=== PATIENT | female | born 1990 | race American Indian/Alaskan Native ===

== ENCOUNTER 2018-10-30 21:48 | Emergency (ER) | payer MEDICAID ==
[2018-10-30 21:58] VITALS: TEMP 98.3; O2SAT 99
--- NOTE | 2018-10-30 22:45 | C.PDOC ---
History Of Present Illness 28-year-old female presents to the ED for evaluation of coughing congestion which began yesterday. Patient states that she is having trouble breathing through her nose. She did not receive her flu vaccination this season. Otherwise, patient denies fever, chills, chest pain, shortness of breath, abdominal pain, nausea, vomiting, headache, dizziness, recent travel, or any sick contacts at this time. Time Seen by Provider: 10/30/18 21:55 Chief Complaint (Nursing): Cough, Cold, Congestion History Per: Patient History/Exam Limitations: no limitations Onset/Duration Of Symptoms: Hrs Current Symptoms Are (Timing): Still Present Associated Symptoms: Cough, Nasal Congestion. denies: Fever, Chills, Nausea, Vomiting Additional History Per: Patient Past Medical History Reviewed: Historical Data, Nursing Documentation, Vital Signs Vital Signs: Last Vital Signs Temp 98.3 F 10/30/18 21:52 Pulse 88 10/30/18 21:52 Resp 14 10/30/18 21:52 BP 115/77 10/30/18 21:52 Pulse Ox 99 10/30/18 21:52 - Medical History PMH: No Chronic Diseases Surgical History: No Surg Hx Family History: States: Unknown Family Hx - Social History Hx Alcohol Use: No Hx Substance Use: No - Immunization History Hx Influenza Vaccination: No Review Of Systems Constitutional: Negative for: Fever, Chills ENT: Positive for: Nose Congestion Cardiovascular: Negative for: Chest Pain Respiratory: Positive for: Cough. Negative for: Shortness of Breath Gastrointestinal: Negative for: Nausea, Vomiting, Abdominal Pain Neurological: Negative for: Headache, Dizziness Physical Exam - Physical Exam Appears: Non-toxic, No Acute Distress Skin: Normal Color, Warm, Dry Head: Atraumatic, Normacephalic Eye(s): bilateral: Normal Inspection Ear(s): Bilateral: Normal Nose: Other (nasal congestion ) Oral Mucosa: Moist Throat: Normal, No Erythema, No Exudate Neck: Normal ROM, Supple Chest: Symmetrical, No Deformity, No Tenderness Cardiovascular: Rhythm Regular, No Murmur Respiratory: Normal Breath Sounds, No Rales, No Rhonchi, No Wheezing Extremity: Normal ROM, Capillary Refill (less than 2 seconds ) Neurological/Psych: Oriented x3, Normal Speech, Normal Cognition ED Course And Treatment O2 Sat by Pulse Oximetry: 99 (on RA ) Pulse Ox Interpretation: Normal Medical Decision Making Medical Decision Making: Progress: CXR ordered. Flu swab ordered, resulted negative. Rapid strep test ordered, resulted negative. On reassessment, patient is resting comfortably, showing no signs of distress and is stable for discharge. Patient is advised to follow up with her PMD within 1-2 days for further evaluation. Disposition - Disposition Referrals: [facility] at [facility] [Outside] Disposition: HOME/ ROUTINE Disposition Time: 22:40 Condition: GOOD Additional Instructions: Increase fluids Rest, no strenuous activity Z-Ricardo as directed Flonase 2 sprays in each nostril daily Tessalon perles every 8 hours as needed for cough Melatonin 30minutes before bed as needed for sleep Followup with primary doctor or clinic within 2 days Return to ER for any new/worsening symptoms Prescriptions: Azithromycin [Z-Ricardo] 250 mg PO DAILY #6 tab Benzonatate [Tessalon Perle] 100 mg PO Q8H PRN #15 capsule PRN Reason: Cough Fluticasone Propionate [Flonase] 2 spr NS DAILY #1 bottle Melatonin 5 mg PO HS PRN #30 tablet PRN Reason: Insomnia Instructions: Upper Respiratory Infection (ED) Forms: General Discharge Instructions, [facility] ([place]), Work Excuse - Clinical Impression Clinical Impression: Lower respiratory infection - PA / EPIC PRELUDE ANALYST / Resident Statement MD/DO has reviewed & agrees with the documentation as recorded. - Scribe Statement The provider has reviewed the documentation as recorded by the Scribe (Alyson Santiago) All medical record entries made by the Scribe were at my direction and personally dictated by me. I have reviewed the chart and agree that the record accurately reflects my personal performance of the history, physical exam, medical decision making, and the department course for this patient. I have also personally directed, reviewed, and agree with the discharge instructions and disposition.
[2018-10-30 22:58] VITALS: BP 104/66; PULSE 76; RESP 16
--- NOTE | 2018-10-31 10:31 | RAD ---
Date of service: 10/30/2018 HISTORY: cough COMPARISON: No prior. TECHNIQUE: Chest PA and lateral FINDINGS: LUNGS: No active pulmonary disease. PLEURA: No significant pleural effusion identified. No pneumothorax apparent. CARDIOVASCULAR: No aortic atherosclerotic calcification present. Normal cardiac size. No pulmonary vascular congestion. OSSEOUS STRUCTURES: No significant abnormalities. VISUALIZED UPPER ABDOMEN: Normal. OTHER FINDINGS: None. IMPRESSION: No acute cardiopulmonary disease appreciated.
== END 2018-10-30 22:59 | disposition home or self-care (01) ==
LOC: C.ER 21:48
DX: J22 Unspecified acute lower respiratory infection (principal)